=== PATIENT | female | born 1980 | race Two or more races ===

== ENCOUNTER 2017-03-15 18:49 | Emergency (ER) | payer OTHER ==
[~2017-03-15 18:49] MED LIST: ?ANTIBIOTIC; AMOXICILLIN PO; AUGMENTIN PO; AVANDIA; BACLOFEN10 MG PO; BACTRIM DS TABL1 TA1 PO; BENTYL10 M1 PO; BENTYL20 MG PO; CIPRO250 MG PO; CLINDAMYCIN HC300 MG PO; CYMBALTA PO; DIABETA5 M1 PO; DICLOFENAC PO; EC-NAPROSYN500 MG; FERROUS SULFATE PO; FLEXERIL PO; FLUCONAZOLE150 M1 PO; GLUCOPHAGE XR500 MG PO; GLUCOPHAGE500 MG PO; IBUPROFEN PO; IBUPROFEN800 MG PO; INSULIN SUBQ; LANTUS SOLOSTAR3 ML SUBQ; LEVAMIR; LEVEMIR100 U/ML SQ; LEVIMIR SUBQ; LOMOTIL TABLET1 TAB PO; LORTAB 5-325 M1 EACH; LORTAB 5/500 TA1 TA1 PO; METFORMIN HCL500 M1 PO; METFORMIN PO; MOTRIN600 MG PO; NAPROSYN500 MG PO; NORCO1 TAB 10/3 DOB; NORFLEX100 M1 PO; ONE DAILY1 TA1 PO; PEN-VEE K PO; PHENERGAN PO; PHENERGAN25 M1 PO; PHENERGAN25 MG PO; PREDNISONE; PRENATAL MULITV1 TAB PO; PROBIOTIC1 EACH; ROBAXIN 750750 M1; ROBAXIN 750750 M1 PO; ULTRAM PO; VICODIN 5/1 TAB 5/50 PO; VICODIN 5/500 T1 TAB PO; VOLTAREN50 MG PO; ZOFRAN ODT4 MG PO; ZOFRAN PO
== END 2017-03-15 18:55 | disposition home or self-care (01) ==
LOC: SED 18:49
DX: S29.012A Strain of muscle and tendon of back wall of thorax, initial encounter (principal); M06.9 Rheumatoid arthritis, unspecified; F17.210 Nicotine dependence, cigarettes, uncomplicated; Z88.8 Allergy status to other drugs, medicaments and biological substances; Z91.040 Latex allergy status; X58.XXXA Exposure to other specified factors, initial encounter; Y92.89 Other specified places as the place of occurrence of the external cause
CPT/HCPCS: 99283

== ENCOUNTER 2017-05-24 12:57 | Emergency (ER) | payer OTHER ==
--- NOTE | ~2017-05-24 | CR173 ---
[facility] A Service of [facility] & [facility] RADIOLOGY TEXT RESULTS PATIENT: RODOLFO MOISE LOCATION: SED : 76 UNIT #: [id number] AGE: [address]: JL HERNANDEZ SEX: F ORDER DR: [id number] [place] [id number] E MR#: [id number] Acc #: [id number] NAME: RODOLFO MOISE : 1980 SEX: F STUDY DATE/TIME: 05/24/2017 13:57 UNIT: SED ROOM: STUDY DESCRIPTION: CR Knee 3 Views Rt Attending Physician: (Radha) Jl Hernandez Ordering Physician: Radha Hernandez Primary Care Physician: Arnol Noguera M.D. MEDICAL IMAGING REPORT This report is preliminary unless electronic signature is present. EXAM Right knee, 3 views; 05/24/2017, 1357 hours. CLINICAL HISTORY 37-year-old woman who fell two times 3 days ago and again yesterday, anterior knee pain since falls. COMPARISON None. FINDINGS AP, cross-table lateral and sunrise views demonstrate no joint effusion or fracture. Mild medial compartment joint space loss. IMPRESSION Negative right knee. Dictated by... Marilin Villaseñor M.D. THIS IS AN ELECTRONICALLY VERIFIED REPORT Marilin Villaseñor M.D. at 05/24/2017 8:32 PM SANDY/ra TD: 05/24/2017 18:43 JOB #: [id number] MEDICAL IMAGING REPORT Page 1 of 1
--- NOTE | ~2017-05-24 | CR20 ---
[facility] A Service of [facility] & [facility] RADIOLOGY TEXT RESULTS PATIENT: RODOLFO MOISE LOCATION: SED : 78 UNIT #: [id number] AGE: [address]: JL HERNANDEZ SEX: F ORDER DR: [id number] [place] [id number] E MR#: [id number] Acc #: [id number] NAME: RODOLFO MOISE : 1980 SEX: F STUDY DATE/TIME: 05/24/2017 UNIT: SED ROOM: STUDY DESCRIPTION: CR Ankle Min 3 Views Lt Attending Physician: Jl Hernandez, Resident Ordering Physician: Jl Hernandez, Resident Primary Care Physician: Arnol Noguera M.D. MEDICAL IMAGING REPORT This report is preliminary unless electronic signature is present. EXAM Left ankle 3 views 05/24/2017 1357 hours. HISTORY 37-year-old woman who fell 2 times 3 days ago and again yesterday complaining of anterior ankle pain since falls. COMPARISON None FINDINGS AP, lateral and oblique views demonstrate no fracture, dislocation, or significant degenerative change. IMPRESSION Negative left ankle. Dictated by... Marilin Villaseñor M.D. THIS IS AN ELECTRONICALLY VERIFIED REPORT Marilin Villaseñor M.D. at 05/24/2017 8:32 PM Cisco TD: 05/24/2017 18:35 JOB #: [id number] MEDICAL IMAGING REPORT Page 1 of 1
--- NOTE | ~2017-05-24 | CR150 ---
[facility] A Service of [facility] & [facility] RADIOLOGY TEXT RESULTS PATIENT: RODOLFO MOISE LOCATION: SED : 78 UNIT #: [id number] AGE: [address]: JL HERNANDEZ SEX: F ORDER DR: [id number] [address] [address] [id number] E MR#: [id number] Acc #: [id number] NAME: RODOLFO MOISE : 1980 SEX: F STUDY DATE/TIME: 05/24/2017 13:57 UNIT: SED ROOM: STUDY DESCRIPTION: CR Hip Min 2 Views Lt Attending Physician: Jl Hernandez, Resident Ordering Physician: Jl Hernandez, Resident Primary Care Physician: Arnol Noguera M.D. MEDICAL IMAGING REPORT This report is preliminary unless electronic signature is present. EXAM Left hip series, 05/24/2017. HISTORY Trauma, fall, pain, injury. Fell 3 days ago; fell 2 times 3 days ago and yesterday. Left lateral hip pain. FINDINGS AP radiograph pelvis presented with frog-leg view left hip. Normal bony mineralization. Bony ring of pelvis intact. No fracture or traumatic malalignment. The bilateral hip joints remain intact. Periarticular soft tissues show no definite acute abnormality. Calcified phleboliths in the pelvis. Visualized bowel gas pattern normal. Dictated by... Harrison De Paz M.D. THIS IS AN ELECTRONICALLY VERIFIED REPORT Harrison De Paz M.D. at 05/25/2017 4:47 PM KYE/leann TD: 05/24/2017 19:46 JOB #: [id number] MEDICAL IMAGING REPORT Page 1 of 1
--- NOTE | ~2017-05-24 | CR93 ---
[facility]. [facility] A Service of [facility] & [facility] RADIOLOGY TEXT RESULTS PATIENT: RODOLFO MOISE LOCATION: SED : 76 UNIT #: [id number] AGE: [address]: JL HERNANDEZ SEX: F ORDER DR: [id number] [address] [address] [id number] E MR#: [id number] Acc #: [id number] NAME: RODOLFO MOISE : 1980 SEX: F STUDY DATE/TIME: 05/24/2017 UNIT: SED ROOM: STUDY DESCRIPTION: CR Elbow Min 3 Views Lt Ordering Physician: [facility] Primary Care Physician: Arnol Noguera M.D. MEDICAL IMAGING REPORT This report is preliminary unless electronic signature is present. EXAM Left elbow 3 views 05/24/2017 1357 hours HISTORY 37-year-old woman who fell 2 times 3 days ago and again yesterday. Elbow pain. COMPARISON None. FINDINGS AP, lateral and oblique views demonstrate no elbow joint effusion or fracture. IMPRESSION Negative left elbow. Dictated by... Marilin Villaseñor M.D. THIS IS AN ELECTRONICALLY VERIFIED REPORT Marilin Villaseñor M.D. at 05/24/2017 8:32 PM SANDY/millicent TD: 05/24/2017 18:28 JOB #: [id number] MEDICAL IMAGING REPORT Page 1 of 1
[2017-05-24] MEDS ORDERED: NEURONTIN300 MG PO (13:00)
[2017-05-24] MEDS ORDERED: IBUPROFEN PO (13:00)
[2017-05-24] MEDS ORDERED: PREDNISONE PO (13:00)
[2017-05-24] MEDS ORDERED: ZESTORETIC 10-1 EAC1 PO (13:01)
[2017-05-24] MEDS ORDERED: HYDROCODON-ACE1 EAC7 PO (13:01)
[2017-05-24] MEDS ORDERED: PHENERGAN PO (13:01)
[2017-05-24] MEDS ORDERED: INVOKANA300 MG PO (13:02)
== END 2017-05-24 15:40 | disposition home or self-care (01) ==
LOC: SED 12:57
DX: S80.01XA Contusion of right knee, initial encounter (principal); S50.02XA Contusion of left elbow, initial encounter; S90.02XA Contusion of left ankle, initial encounter; S70.02XA Contusion of left hip, initial encounter; F17.210 Nicotine dependence, cigarettes, uncomplicated; Z79.899 Other long term (current) drug therapy; Z91.018 Allergy to other foods; Z88.8 Allergy status to other drugs, medicaments and biological substances; Z88.1 Allergy status to other antibiotic agents; Z91.040 Latex allergy status; W01.0XXA Fall on same level from slipping, tripping and stumbling without subsequent striking against object, initial encounter; Y92.009 Unspecified place in unspecified non-institutional (private) residence as the place of occurrence of the external cause
CPT/HCPCS: 73080; 73502; 73562; 73610; 99283